=== PATIENT | female | born 1955 | race Caucasian/White ===

== ENCOUNTER 2018-06-21 20:20 | Emergency (ER) | payer OTHER ==
[~2018-06-21] VITALS: Ht 157.5 cm; Wt 62.6 kg
== END 2018-06-21 23:46 | disposition home or self-care (01) ==
LOC: ER 20:20
DX: N20.0 Calculus of kidney (principal); R10.31 Right lower quadrant pain

== ENCOUNTER 2025-04-02 07:56 | Emergency (ER) | payer OTHER ==
[~2025-04-02] VITALS: Ht 162.6 cm; Wt 54.4 kg
[2025-04-02] MEDS ORDERED: CRESTOR40 MG PO (08:25)
[2025-04-02] MEDS ORDERED: KETOROLAC TROMETHAMINE 60 MG VIAL IM STA (09:19)
[2025-04-02] MEDS ORDERED: KETOROLAC TROMETHAMINE 60 MG VIAL IM ONE (10:32)
[2025-04-02] MEDS ORDERED: MORPHINE SULFATE 2 MG/ML SYRINGE IV STA ×2 (10:54→11:29)
[2025-04-02] MEDS ORDERED: CIPROFLOXACIN IN 5 % DEXTROSE 400 MG/200 ML PIGGYBAG IV STA (11:40)
[2025-04-02] MEDS ORDERED: METRONIDAZOLE/SODIUM CHLORIDE 500 MG/100 ML PIGGYBACK IV STA (11:41)
[2025-04-02 11:54] LABS: BASO % 0.1 % (0.1-1.2); HEMATOCRIT 40.2 % (34.1-44.9); HEMOGLOBIN 14.4 g/dL (11.2-15.7); LYMPH # 0.51 (1.18-3.74); LYMPH % 2.8 % (19.3-53.1); MEAN CORPUSCULAR HEMOGLOBIN 32.7 pg (25.6-32.2); MONO # 0.65 (0.24-0.82); MONO % 3.6 % (4.7-12.5); NEUT # 16.95 (1.56-6.13); NEUT % 93.2 % (34.0-71.1); PLATELET COUNT 161 K/uL (163-369); RED BLOOD COUNT 4.41 M/uL (3.93-5.22); RED CELL DISTRIBUTION WIDTH 12.8 % (11.6-14.4)
[2025-04-02] MEDS ORDERED: CIPROFLOXACIN IN 5 % DEXTROSE 400 MG/200 ML PIGGYBAG IV ONE (11:58)
[2025-04-02] MEDS ORDERED: METRONIDAZOLE/SODIUM CHLORIDE 500 MG/100 ML PIGGYBACK IV ONE (11:58)
[2025-04-02 14:12] LABS: CALCIUM 9.2 mg/dL (8.5-10.1); CREATININE SERUM 0.85 mg/dL (0.55-1.02); GFR 65.74; POTASSIUM 4.26 mEq/L (3.5-5.1)
== END 2025-04-02 14:57 | disposition home or self-care (01) ==
LOC: ER 08:03
PROVIDERS: General Practice
DX: K52.9 Noninfective gastroenteritis and colitis, unspecified (principal); R10.2 Pelvic and perineal pain; Z88.6 Allergy status to analgesic agent; Z91.041 Radiographic dye allergy status
CPT/HCPCS: 36415; 74176; 96372; 99284; J0744; J1885; J2270; J3490